=== PATIENT | female | born 2000 | race Caucasian/White ===

== ENCOUNTER 2022-08-20 18:02 | Emergency (ER) | payer OTHER, SELFPAY ==
[2022-08-20 18:05] VITALS: BP 115/85; PULSE 88; RESP 18; TEMP 37.1; O2SAT 98; BMI 22.1
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
[2022-08-20 18:59] LABS: Absolute Lymphocyte Count 0.94 X10^3/uL (0.83-4.51); Absolute Neutrophil Count 3.9 X10^3/uL (2.0-7.7); Basophil# 0.02 X10^3/uL; Basophil% 0.4 % (0-1); Eosinophil# 0.01 X10^3/uL; Eosinophils% 0.2 % (0-5); Hematocrit 37.8 % (37-47); Hemoglobin 12.9 g/dL (12.0-15.0); Lymphocyte # 0.94 X10^3/ul (0.83-4.51); Lymphocyte % 18.6 % (19-41); Mean Corp Hgb Conc 34.1 g/dL (32-36); Mean Corpuscular Volume 84.9 fL (81-99); Mean Platelet Vol. 10.5 fl (6.2-12.0); NRBC Flagged by Analyzer 0 % (0-5); Neutrophil # 3.88 X10^3/uL (2.7-7.7); Neutrophil % 76.6 % (47-70); Platelet Count 275 K/mm3 (150-450); RBC Distribution Width CV 12.6 % (11.6-14.6); RBC Distribution Width SD 38.6 fl (35.1-43.9); Red Blood Count 4.45 M/mm3 (4.2-5.4); White Blood Count 5.1 K/mm3 (4.4-11.0)
[2022-08-20 19:04] VITALS: RESP 16
[2022-08-20 19:22] LABS: Amphetamine Urine VISTA NEGATIVE (<1000 ng/mL); Barbiturate Urine VISTA NEGATIVE (< 200 ng/mL); Benzodiazepine Urine VISTA NEGATIVE (< 200 ng/mL); Cocaine Urine VISTA NEGATIVE (< 300 ng/mL); Ecstacy Urine VISTA NEGATIVE (< 500 ng/mL); Methadone Urine VISTA NEGATIVE (< 300 ng/mL); PCP Urine VISTA NEGATIVE (< 25 ng/mL); THC Urine VISTA NEGATIVE (< 50 ng/mL); Vista UDS pH Range 6
[2022-08-20 19:23] LABS: Alcohol, Blood (Medical)-Serum < 3.0 mg/dL
[2022-08-20 19:25] LABS: Anion Gap 9 (5-15); BUN 17 mg/dL (7-18); BUN/Creat Ratio 25.1 RATIO (10-20); Calcium,Total 9.2 mg/dL (8.5-10.1); Chloride 106 mmol/L (98-107); Creatinine, Serum 0.68 mg/dL (0.55-1.02); EST Glomerular Filtration Rate 117 mL/min (>60); Est Glom Filt Rate - Afr Amer 141 mL/min (>60); Estimated Creatinine Clearance 118.75 ml/min; Glucose 107 mg/dL (74-106); Potassium 4.1 mmol/L (3.5-5.1); Sodium Level 138 mmol/L (136-145)
[2022-08-20 19:31] LABS: Internal QC Validated? YES +Cl - CLEAR BKGD; Pregnancy, Serum, hCG Quali. NEGATIVE Negative
[2022-08-20] MEDS: Ibuprofen 200 MG Tablet 400 MG PO (19:49)
[2022-08-20 19:59] VITALS: PULSE 74; RESP 16; O2SAT 98
--- NOTE | 2022-08-20 20:30 | CM.ED ---
Social Work DANIELA introduced self and role to patient and [facility] attendant. SW spoke to patient and worker, patient did not make eye contact or answer questions. [facility]. Counselor sent patient via ems due to suicidal concerns and believing patient needs hospitalization. Pt is listed as self-pay and she was unsure if patient had funding through [employer] funds. DANIELA called [facility] and spoke with Fernando who reports patient is from [place] and that bills should be sent to [facility]. DANIELA additionally called Sumeet Mills who is listed as next of kin on facesheet. Sumeet is the senior network administrator of [facility]. Sumeet reports patient does not have [employer] funds through a community. He reports bills to be sent to [facility] and that someone in [place] pays her bill but could not provide further information regarding payment. Due to patient having no insurance and possibly needing psychiatric hospitalization, crisis needs to assess. DANIELA notified crisis and faxed patient information to crisis for review. Annalisa Cardoza TYPEWRITER ALIGNER, COUNSELING DIRECTOR
[2022-08-20 21:00] VITALS: PULSE 72; RESP 16; O2SAT 99
[2022-08-20 22:47] VITALS: O2SAT 97
--- NOTE | 2022-08-20 23:35 | ED.RN ---
Crisis at bedside for assessment, they state they tried to safety plan and patient states she will go back and find something to kill herself with. Therefore they are recommended placement. Due to patient being out of state and having no insurance placement will take several days
[2022-08-21] VITALS (14 sets, daily range): BP systolic 106–112; BP diastolic 68–74; PULSE 61–83; RESP 14–16; O2SAT 98–99
[2022-08-21] MEDS: hydrOXYzine PAM 25 MG Capsule 50 MG PO (00:24)
--- NOTE | 2022-08-21 10:28 | NURSING ---
CALLED CRISIS, TALKED TO MATEO. NOTHING NEW. SHE WILL FOLLOWUP WITH ISAIAS
--- NOTE | 2022-08-21 11:09 | NURSING ---
GRAYSON, CRISIS, CALLED. PATIENT WILL NOT BE ADMITTED TO [facility] TODAY
--- NOTE | 2022-08-21 12:29 | EKG12_ITS ---
Test Reason : [facility] [place] Pressure : / mmHG Vent. Rate : 068 BPM Atrial Rate : 068 BPM P-R Int : 152 ms QRS Dur : 082 ms QT Int : 386 ms P-R-T Axes : 082 076 050 degrees QTc Int : 410 ms Normal sinus rhythm Normal ECG Confirmed by KEVIN BUSBY, INA ([id number]), research editor RAMBO MAIN ([id number]) on 08/22/2022 9:09:14 AM Referred By: PL Confirmed By:INA BROWN MD
[2022-08-21 13:13] LABS: AST(SGOT) 20 U/L (15-37); Alanine Aminotransfer ALT/SGPT 34 U/L (13-56); Albumin, Serum 4.6 g/dL (3.2-5.0); Alkaline Phosphatase 56 U/L (45-117); Bilirubin, Direct 0.13 mg/dL (0.00-0.30); Globulin 3.8 g/dL (2.2-4.2); Protein, Total 8.4 g/dL (6.4-8.2)
--- NOTE | 2022-08-21 15:59 | CM.ED ---
Social Work Crisis called SW and reports they will reevaluate this evening to see if a safety plan is possible. Crisis could not safety plan patient yesterday as patient was not agreeable. Annalisa Cardoza CREPING MACHINE OPERATOR HELPER, LEGAL ASSOCIATE
[2022-08-21] MEDS: FLUoxetine 20 MG Capsule PO (20:51)
--- NOTE | 2022-08-21 21:54 | ED.RN ---
Staff from [facility] arrives to pick patient up. Pt given belongings to get dressed. Pt has a copy of safety plan for herself and for the facility. both deny any further questions or needs.
== END 2022-08-21 22:05 ==
PROVIDERS: Emergency Medicine; Emergency Provider Emergency Medicine; PCP Family Medicine; Visit Provider Emergency Medicine
DX: R45.851 Suicidal ideations (principal); F32.A Depression, unspecified; F41.9 Anxiety disorder, unspecified; Z62.810 Personal history of physical and sexual abuse in childhood; Z79.899 Other long term (current) drug therapy
CPT/HCPCS: 36415; 80048; 80076; 80307; 82077; 84703; 85025; 87811; 93005; 99285